=== PATIENT | female | born 1945 | race Caucasian/White ===

== ENCOUNTER 2018-04-14 18:00 | Inpatient (IN) | payer MEDICARE, BC ==
[~2018-04-14] VITALS: Ht 149.9 cm; Wt 74.8 kg
--- NOTE | ~2018-04-14 | RHP ---
PATIENT: KRISTINA LOPEZ MEDICAL RECORD: [id number] ACCOUNT: [id number] LOCATION:[id number] : 49 ADMISSION DATE: 04/14/18 REHABILITATION HISTORY AND PHYSICAL EXAMINATION POST ADMISSION PHYSICIAN EXAMINATION POST-ADMISSION PHYSICAL EXAMINATION AND HISTORY AND PHYSICAL DATE OF ADMISSION: 04/14/2018 ADMITTING DIAGNOSES: Bilateral total hip arthroplasty with a complication and acute blood loss anemia secondary to right total hip arthroplasty. HISTORY OF PRESENT ILLNESS: The patient is a 72-year-old female patient admitted to rehab with a working diagnosis of postop complications of acute blood loss anemia. She was diagnosed with avascular necrosis with collapse femoral head of the right lower extremity. She underwent a right total hip on 04/11/2018, at the [facility] under Dr. Rachel. She lives at home and was previously independent. She was recently diagnosed with non-Hodgkin's lymphoma and underwent recent chemotherapy in February of 2017 to 2017 under the care of Dr. Turk at [facility]. Her next followup appointment is on May 01. She has a past medical history significant for arthritis, avascular necrosis, degenerative joint disease, thrombocytopenia, non-Hodgkin lymphoma. The patient has been developing worsening right lower extremity pain, right hip pain and back pain. She was evaluated by Dr. Rachel, and was found to have avascular necrosis and collapse femoral head of the right lower extremity after being cleared for surgery with close monitoring of her lab values and vital signs. She underwent a right total hip on 04/11/2018, at [facility]. Postop, she had a complicated course with acute blood loss anemia with a hemoglobin down to 7.8 requiring 2 units packed red blood cells, acute toxic encephalopathy secondary to anesthesia and pain medication problems including hallucinations and confusion. She is improving at this time, but is not completely resolved. She has also had pain. She is now only able to take Tylenol secondary to confusion and debility and generalized weakness secondary to her immobility. She had a low white count. The patient is to participate in therapy on 04/14/2018. She was mod assist for bed mobility, mod assist for transfers, min assist for ambulation 50 feet with a slow pace. She noted to have balance deficits, unsteady gait, cognitive deficits. has requested acute inpatient rehab prior to discharge home and would like to have her daily doctor oversight with assessment and treatment for acute blood loss anemia requiring daily lab checks, watch for any type of medication-induced toxic encephalopathy and thrombocytopenia requiring management, so she is going to be admitted to the rehab, we are going to follow her here. COMORBIDITIES: In this patient include avascular necrosis of the sacrum, avascular necrosis of the right hip, collapse right femoral head, non-Hodgkin's lymphoma status post chemotherapy, toxic encephalopathy secondary to anesthesia and pain, debility, acute blood loss anemia requiring blood transfusion, low white count, thrombocytopenic purpura and right hip pain. 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 PAST SURGICAL HISTORY: Includes appendectomy, ankle fusion, and kyphoplasty. HISTORY AND PHYSICAL [id number] KRISTINA LOPEZ ALLERGIES: PHENERGAN AND NONSTEROIDAL ANTI-INFLAMMATORIES. CURRENT MEDICATIONS: Include Prozac 40 mg daily, enoxaparin 40 mg daily, 1000 mg of Tylenol q.6 hours p.r.n., Neurontin 1200 mg at bedtime, hydrocodone 10/325 one tab q.4 hours p.r.n. severe pain, Zofran 8 mg q.8 hours p.r.n., Ativan 0.5 mg b.i.d., and polyethylene glycol 17 grams in 8 ounces of water daily. HABITS: No current alcohol or tobacco use. FAMILY HISTORY: Noncontributory. SOCIAL HISTORY: The patient hopes to return back home and get back to her prior level of functioning. REVIEW OF SYSTEMS: GENERAL: She does complain of weakness and fatigue. HEENT: Denies cold, cough, or congestion. CARDIOVASCULAR: Denies any chest pain. PHYSICAL EXAMINATION: VITAL SIGNS: Her vital signs are stable. She is afebrile. GENERAL: An elderly female, in no acute distress, alert upon exam. She is mildly confused. HEENT: Normocephalic and atraumatic. Mucosa moist. NECK: Supple. No lymphadenopathy. LUNGS: Clear at this time. HEART: Regular rate and rhythm. ABDOMEN: Benign. EXTREMITIES: She does have normal appearing postop swelling. NEUROLOGIC: She is mostly intact. ASSESSMENT: This is a 72-year-old female patient admitted to rehab with a working diagnosis of blood loss anemia secondary to avascular necrosis and total hip replacement. The patient has potential to make improvement. We instituted the following multidisciplinary therapies include, but not limited to physical, occupational, respiratory, speech, nutritional services, prosthetics and orthotics. Given her complex medical condition and risk for more complications, rehabilitation services cannot be provided at a low level of care such as skilled nurse facility. PLAN: 1. Admit to [facility] rehab for intensive inpatient therapy to include the following disciplines: A. Physical therapy to improve gait, all transfer skills and bed mobility to a modified independent level. B. Occupational therapy to improve activities of daily living to a modified independent level. C. Case management to assist with discharge planning and placement options. D. Nutrition to assist with nutritional needs. E. Rehabilitation nursing to assist in monitoring the patient's underlying medical conditions and to assist with any type of bowel or bladder management. 2. The patient's current medication and medical care will be continued. 3. The patient will be placed on standard fall precautions. 4. We are going to watch her blood counts and her mental status closely and will follow up in the a.m. HISTORY AND PHYSICAL [id number] KRISTINA LOPEZ TRANSINT:[id number] Voice Confirmation ID: [id number] DOCUMENT ID: [id number] 04/20/2018 Edited for ora GUPTA. ALONSO notes whether there has been none or any medical/functional change since admission: - No change since preadmission screen. ALONSO attests patient continues to be appropriate for IRF: - Continues to be appropriate. CECE CASTRO MD at 2041 CC: [id number] DICTATION DATE: 04/14/182015 TRANSPLANT NURSE PRACTITIONER: 04/14/18 [id number] DIS IN 04/21/18 [id number] [place] [address]
[2018-04-14] MEDS ORDERED: ATIVAN0.5 MG PO (18:37)
[2018-04-14] MEDS ORDERED: PROZAC40 MG PO (18:37)
[2018-04-14] MEDS ORDERED: ZOFRAN4 MG PO (18:38)
[2018-04-14] MEDS ORDERED: HYDROCODONE-APA1 TAB PO (18:39)
[2018-04-14] MEDS ORDERED: ACETAMINOPHEN500 M1 PO (18:41)
[2018-04-14] MEDS ORDERED: NEURONTIN 400400 MG PO (18:41)
[2018-04-14] MEDS ORDERED: LOVENOX40 MG/0.4 SC (18:42)
[2018-04-14 19:00] VITALS: BP 143/59
[2018-04-14 21:42] VITALS: BP 143/591; BMI 33.4
[2018-04-15 06:23] LABS: HEMATOCRIT 31.8 % (36.0-48.0); HEMOGLOBIN 10.6 g/dL (12-16); MCH 32.3 pg (26.0-34.0); MCHC 33.3 g/dL (31.0-37.0); MEAN PLATELET VOLUME 9.6 fL (7.4-10.4); PLATELET COUNT 118 10x3/uL (130-400); RBC 3.28 10x6/uL (4.00-5.40); WBC 2.2 10x3/uL (4.8-10.8)
[2018-04-15 06:26] LABS: CALC OSMOLALITY 278 mosm/kg (275-300); CALCIUM 8.5 mg/dL (8.5-10.1); CARBON DIOXIDE 28.1 mmol/L (21.0-32.0); CHLORIDE - SERUM 106 mmol/L (98-107); CREATININE - SERUM 0.6 mg/dL (0.6-1.3); GLUCOSE 98 mg/dL (74-106); POTASSIUM - SERUM 3.5 mmol/L (3.5-5.1); SODIUM 141 mmol/L (136-145); UREA NITROGEN 8 mg/dL (7-18); eGFR NON AFRICAN AMERICAN > 90 mL/min (90-120)
[2018-04-15 08:00] VITALS: BP 139/59
[2018-04-15 08:15] LABS: ANISOCYTOSIS OCC; EOSINOPHILS 1 % (0-7); LYMPHOCYTES 39 % (15-50); MONOCYTES 6 % (2-11); NEUTROPHILS 54 % (40-80); PLATELET ESTIMATE NORMAL; ROULEAUX OCC
[2018-04-15 13:08] VITALS: Ht 149.9 cm; Wt 74.8 kg
[2018-04-15 19:00] VITALS: BP 146/58
[2018-04-16 10:26] VITALS: BP 166/70
[2018-04-17 10:12] VITALS: BP 106/57
[2018-04-18 06:22] LABS: CALC OSMOLALITY 280 mosm/kg (275-300); CALCIUM 7.8 mg/dL (8.5-10.1); CARBON DIOXIDE 29.4 mmol/L (21.0-32.0); CHLORIDE - SERUM 108 mmol/L (98-107); CREATININE - SERUM 0.5 mg/dL (0.6-1.3); GLUCOSE 93 mg/dL (74-106); POTASSIUM - SERUM 3.3 mmol/L (3.5-5.1); SODIUM 142 mmol/L (136-145); UREA NITROGEN 7 mg/dL (7-18); eGFR NON AFRICAN AMERICAN > 90 mL/min (90-120)
[2018-04-18 06:27] LABS: BASOPHILS 0.8 % (0-2); EOSINOPHILS 7.3 % (0-7); HEMATOCRIT 28.7 % (36.0-48.0); HEMOGLOBIN 9.4 g/dL (12-16); IMMATURE GRANULOCYTES 0.8 % (0-5); LYMPHOCYTES 38.2 % (15-50); MCH 31.8 pg (26.0-34.0); MCHC 32.8 g/dL (31.0-37.0); MEAN PLATELET VOLUME 9.7 fL (7.4-10.4); MONOCYTES 12.2 % (2-11); NEUTROPHILS 40.7 % (40-80); PLATELET COUNT 125 10x3/uL (130-400); RBC 2.96 10x6/uL (4.00-5.40); RDW 14.8 % (11.5-14.5)
[2018-04-18 06:42] LABS: WBC 1.2 10x3/uL (4.8-10.8)
[2018-04-18 07:57] VITALS: BP 143/65
[2018-04-18 19:00] VITALS: BP 142/50
[2018-04-19 08:00] VITALS: BP 162/63
[2018-04-19 11:25] LABS: BASOPHILS 1.5 % (0-2); EOSINOPHILS 5.3 % (0-7); HEMATOCRIT 30.7 % (36.0-48.0); HEMOGLOBIN 10.1 g/dL (12-16); IMMATURE GRANULOCYTES 0.8 % (0-5); LYMPHOCYTES 30.8 % (15-50); MCH 32.4 pg (26.0-34.0); MCHC 32.9 g/dL (31.0-37.0); MCV 98.4 fL (80.0-100.0); MEAN PLATELET VOLUME 9.5 fL (7.4-10.4); MONOCYTES 15.8 % (2-11); NEUTROPHILS 45.8 % (40-80); PLATELET COUNT 146 10x3/uL (130-400); RBC 3.12 10x6/uL (4.00-5.40); RDW 14.8 % (11.5-14.5)
[2018-04-19 11:34] LABS: WBC 1.3 10x3/uL (4.8-10.8)
[2018-04-19 19:00] VITALS: BP 142/55
[2018-04-20 07:19] LABS: BASOPHILS 0.9 % (0-2); EOSINOPHILS 7.4 % (0-7); HEMATOCRIT 28.9 % (36.0-48.0); HEMOGLOBIN 9.4 g/dL (12-16); IMMATURE GRANULOCYTES 0.9 % (0-5); MCHC 32.5 g/dL (31.0-37.0); MCV 98.3 fL (80.0-100.0); MEAN PLATELET VOLUME 9.2 fL (7.4-10.4); MONOCYTES 16.7 % (2-11); NEUTROPHILS 37.1 % (40-80); PLATELET COUNT 132 10x3/uL (130-400); RBC 2.94 10x6/uL (4.00-5.40); RDW 14.8 % (11.5-14.5)
[2018-04-20 07:33] LABS: CALC OSMOLALITY 281 mosm/kg (275-300); CARBON DIOXIDE 30.4 mmol/L (21.0-32.0); CHLORIDE - SERUM 108 mmol/L (98-107); CREATININE - SERUM 0.6 mg/dL (0.6-1.3); GLUCOSE 94 mg/dL (74-106); POTASSIUM - SERUM 3.9 mmol/L (3.5-5.1); SODIUM 142 mmol/L (136-145); UREA NITROGEN 9 mg/dL (7-18); eGFR NON AFRICAN AMERICAN > 90 mL/min (90-120)
[2018-04-20 08:00] VITALS: BP 169/55
[2018-04-20 08:18] LABS: WBC 1.1 10x3/uL (4.8-10.8)
[2018-04-20 21:08] VITALS: BP 128/52
== END 2018-04-21 10:30 | disposition home health service (06) | DRG 919 ==
LOC: D.REHAB 18:00
PROVIDERS: Emergency Medicine
DX: M96.811 Intraoperative hemorrhage and hematoma of a musculoskeletal structure complicating other procedure (principal); G92 Toxic encephalopathy; D62 Acute posthemorrhagic anemia; C85.90 Non-Hodgkin lymphoma, unspecified, unspecified site; Z47.1 Aftercare following joint replacement surgery; Z96.641 Presence of right artificial hip joint; R53.81 Other malaise; D69.6 Thrombocytopenia, unspecified